=== PATIENT | female | born 1975 | race Caucasian/White ===

== ENCOUNTER → 2016-08-27 | Outpatient (CLI) | payer BC ==
[~2016-08-27] MED LIST: PRENTAB65 PO
[2016-08-27 16:09] LABS: URINE APPEARANCE CLEAR (CLEAR); URINE BILIRUBIN NEG (NEG); URINE COLOR YELLOW; URINE NITRITE NEG (NEG); UROBILINOGEN NEG (NEG)
[2016-08-27 16:12] LABS: MANUAL MICROSCOPIC REQUIRED? NO; REVIEW REQ? NO
== END | disposition home or self-care (01) ==
LOC: C.LABSPEC 15:37
PROVIDERS: ATTEND Obstetrics & Gynecology
DX: O09.519 Supervision of elderly primigravida, unspecified trimester (principal)

== ENCOUNTER → 2016-08-28 | Outpatient (CLI) | payer BC ==
[2016-09-03 03:24] LABS: CHLAMYDIA TRACH RNA*** NOT DETECTED (NOT DETECTED); GC (NEIS GONORRHOEAE)RNA** NOT DETECTED (NOT DETECTED)
== END | disposition home or self-care (01) ==
LOC: C.LABSPEC 18:08
PROVIDERS: ATTEND Obstetrics & Gynecology
DX: O09.519 Supervision of elderly primigravida, unspecified trimester (principal)

== ENCOUNTER → 2016-08-28 | Outpatient (CLI) | payer BC ==
[2016-08-28 16:46] LABS: BASO % 0.2 %; BASO ABS # 0.02 K/uL (0-0.2); COMPLETE YES; EOS % 1.3 %; HEMATOCRIT 33.5 % (37-47); IG% 0.2 %; LYMPH % 19.2 %; LYMPH ABS # 1.76 K/uL (1.2-3.4); MEAN CELL VOLUME 91.3 fL (80-100); MEAN CORPUSCULAR HEMOGLOBIN 32.7 pg (25-34); MEAN CORPUSCULAR HGB CONC 35.8 g/dl (32-36); MEAN PLATELET VOLUME 9.9 fL (7.4-10.4); MONO % 8.4 %; NEUT % 70.7 %; PLATELET COUNT 253 K/uL (130-400); RED BLOOD COUNT 3.67 M/uL (4.2-5.4); WHITE BLOOD COUNT 9.19 K/uL (4.8-10.8)
== END | disposition home or self-care (01) ==
LOC: C.LAB1850 15:21
PROVIDERS: ATTEND Obstetrics & Gynecology
DX: O09.519 Supervision of elderly primigravida, unspecified trimester (principal)

== ENCOUNTER → 2016-08-28 | Outpatient (CLI) | payer BC | END | disposition home or self-care (01) | LOC: C.PAPS 10:39 | PROVIDERS: ATTEND Obstetrics & Gynecology | DX: O09.512 Supervision of elderly primigravida, second trimester (principal); Z87.42 Personal history of other diseases of the female genital tract ==

== ENCOUNTER → 2016-09-18 | Outpatient (CLI) | payer BC ==
[2016-09-18 12:30] LABS: GTGD 50 Grams
[2016-09-19 15:17] LABS: AFP CONCENTRATION 21.8 NG/ML; AFP MULTIPLE OF MEDIAN 0.72; AFPTS GESTATIONAL AGE 16.7 WEEKS; AFPTS INSULIN DEP DIABETIC? NO; AFPTS MATERNAL WT 192 LBS; ALPHA-FETOPROTEIN RACE CAUCASIAN=W; HISTORY OF NTD NO; REPEAT SAMPLE? NO
== END | disposition home or self-care (01) ==
LOC: C.LAB1850 09:43
PROVIDERS: ATTEND Obstetrics & Gynecology
DX: O09.512 Supervision of elderly primigravida, second trimester (principal)

== ENCOUNTER → 2016-12-11 | Outpatient (CLI) | payer BC ==
[2016-12-11 14:37] LABS: HEMATOCRIT 31.1 % (37-47)
[2016-12-11 15:20] LABS: GTGD 50 Grams
== END | disposition home or self-care (01) ==
LOC: C.LAB1850 13:35
PROVIDERS: ATTEND Obstetrics & Gynecology
DX: O09.513 Supervision of elderly primigravida, third trimester (principal)

== ENCOUNTER → 2016-12-11 | Outpatient (CLI) | payer BC ==
[2016-12-11 16:41] LABS: URINE APPEARANCE CLEAR (CLEAR); URINE BILIRUBIN NEG (NEG); URINE COLOR YELLOW; URINE EPITHELIAL CELL AUTO >30 /lpf (0-5); URINE NITRITE NEG (NEG); URINE PH 6.5 (4.5-7.5); URINE SPECIFIC GRAVITY 1.015 (1.000-1.030); UROBILINOGEN NEG (NEG)
[2016-12-11 16:44] LABS: MANUAL MICROSCOPIC REQUIRED? NO; REVIEW REQ? NO
== END | disposition home or self-care (01) ==
LOC: C.LABSPEC 15:56
PROVIDERS: ATTEND Obstetrics & Gynecology
DX: O09.513 Supervision of elderly primigravida, third trimester (principal)

== ENCOUNTER → 2016-12-24 | Outpatient (CLI) | payer BC | END | disposition home or self-care (01) | LOC: C.LAB1850 07:09 | PROVIDERS: ATTEND Obstetrics & Gynecology | DX: O28.1 Abnormal biochemical finding on antenatal screening of mother (principal) ==

== ENCOUNTER → 2017-02-05 | Outpatient (CLI) | payer BC | END | disposition home or self-care (01) | LOC: C.LABSPEC 11:11 | PROVIDERS: ATTEND Obstetrics & Gynecology | DX: O09.513 Supervision of elderly primigravida, third trimester (principal); Z3A.00 Weeks of gestation of pregnancy not specified ==

== ENCOUNTER 2017-03-07 00:25 | Inpatient (IN) | payer BC ==
[~2017-03-07] VITALS: Ht 167.6 cm; Wt 91.6 kg
[2017-03-07] MEDS ORDERED: PRENTAB65 PO (01:53)
[2017-03-07 01:54] VITALS: Ht 167.6 cm; Wt 91.6 kg
[2017-03-07] MEDS ORDERED: LACTATED RINGER'S 1000ML 1,000 ML IV PRN (02:41)
[2017-03-07 03:06] LABS: HEMATOCRIT 30.7 % (37-47); MEAN CELL VOLUME 90.6 fL (80-100); MEAN CORPUSCULAR HEMOGLOBIN 30.7 pg (25-34); MEAN CORPUSCULAR HGB CONC 33.9 g/dl (32-36); MEAN PLATELET VOLUME 9.5 fL (7.4-10.4); PLATELET COUNT 224 K/uL (130-400); RED BLOOD COUNT 3.39 M/uL (4.2-5.4); WHITE BLOOD COUNT 14.75 K/uL (4.8-10.8)
[2017-03-07] MEDS ORDERED: FENTANYL 2MCG/ML ROPIV 1.25MG/ML 100ML BAG EPI ONE (03:07)
[2017-03-07] MEDS ORDERED: BUPIVACAINE 0.25% 30 ML VIAL ONE (03:07)
[2017-03-07] MEDS ORDERED: EpHEDrine SULFATE INJ 50 MG/ML AMP ONE (03:07)
[2017-03-07] MEDS ORDERED: FENTANYL CITRATE INJ 50 MCG/1 ML 2 ML VIAL ONE (03:08)
[2017-03-07] MEDS ORDERED: LACTATED RINGER'S 1000ML 500 ML IV PRN ×2 (03:56→10:02)
[2017-03-07] MEDS ORDERED: NALOXONE HCL INJ 1 MG in SODIUM CHLORIDE 0.9% 1000ML 1,000 ML IV PRN (03:56)
[2017-03-07] MEDS ORDERED: NALBUPHINE HCL INJ 10 MG/ML AMP IV PRN (04:00)
[2017-03-07] MEDS ORDERED: NALOXONE HCL INJ 0.4 MG/1 ML VIAL/CARP IV PRN (04:00)
[2017-03-07] MEDS ORDERED: EpHEDrine SULFATE INJ 50 MG/ML AMP IV PRN (04:00)
[2017-03-07] MEDS ORDERED: ONDANSETRON INJ 2 MG/ML 2 ML VIAL IV PRN (04:00)
[2017-03-07] MEDS ORDERED: DiphenhydrAMINE HCL 50 MG/ML VIAL IV PRN (04:00)
[2017-03-07] MEDS ORDERED: NURSING VERBAL MED ORDER ONE (05:00)
[2017-03-07] MEDS ORDERED: CALCIUM CARBONATE 500 MG CHEWABLE PO PRN (05:15)
[2017-03-07] MEDS: LACTATED RINGER'S 1000ML 1,000 ML IV SCH ×2 (05:34→12:49)
[2017-03-07] MEDS: FENTANYL 2MCG/ML ROPIV 1.25MG/ML 100ML BAG EPI PRN ×2 (06:55→13:05)
[2017-03-07] MEDS ORDERED: OXYTOCIN 30 UNITS/500ML NSS IV PRN ×2 (10:15→15:45)
[2017-03-07] MEDS ORDERED: SUPERCREAM 0.870 % 15GM JAR EXT PRN (15:45)
[2017-03-07] MEDS ORDERED: IBUPROFEN 600 MG TAB PO PRN (15:45)
[2017-03-07] MEDS ORDERED: ACETAMINOPHEN/CODEINE 300/30MG TAB PO PRN ×2 (15:45)
[2017-03-07] MEDS ORDERED: ACETAMINOPHEN 325 MG TAB PO PRN (15:45)
[2017-03-07] MEDS ORDERED: HYDROCORTISONE ACETATE 25 MG SUPP PR PRN (15:45)
[2017-03-07] MEDS ORDERED: OXYCODONE/ACETAMINOPHEN 5-325 TAB PO PRN (15:45)
[2017-03-07] MEDS ORDERED: LANOLIN OINT EXT PRN ×2 (15:45)
[2017-03-07] MEDS ORDERED: BENZOCAINE 20% AER SPR 82.5 GM CAN EXT PRN (15:45)
--- NOTE | 2017-03-07 16:03 | DELIVERY SUMMARY ---
DATE OF OPERATION: 03/07/2017 VAGINAL DELIVERY NOTE DATE OF DELIVERY: 03/07/2017 Juanis arrived in labor for Dr. Alvarado. At call sign-out she was progressing quickly. She became 9 cm and then fully and then pushed for a relatively short period of time, baby in right occiput anterior position. Clear fluid. There was nuchal cord that was passed over the head. Mouth and then nares suctioned with bulb. Baby delivered with gentle traction. No excessive force used. Live vigorous female infant. Cord clamped and cut. Cord gasses obtained. Cord blood obtained. Small first degree tear repaired with 3-0 Vicryl. Placenta removed without difficulty. IV Pitocin started. Estimated blood loss 300 mL. Sponge and instrument counts correct. I attest to the content of the Intraoperative Record and any orders documented therein. Any exception s are noted below.
--- NOTE | 2017-03-07 16:48 | Anesthesia Procedure Note ---
Anesthesia Epidural Removal Nt Date & Time Mar 07, 2017 at 16:48 Vital Signs Pain Intensity: 2.0 Notes Mental Status: alert / awake / arousable, participated in evaluation Nausea / Vomiting: adequately controlled Pain: adequately controlled Airway Patency, RR, SpO2: stable & adequate BP & HR: stable & adequate Hydration State: stable & adequate Neuraxial Anesthesia: was administered, sensory block is resolving Anesthetic Complications: no major complications apparent, pt satisfied with anesthetic care Epidural: removed without complications, with tip intact
[2017-03-07 18:30] VITALS: BP 120/69; PULSE 87; TEMP 36.9
[2017-03-07] MEDS: DOCUSATE SODIUM 100 MG CAP PO SCH (20:02)
[2017-03-07 23:15] VITALS: BP 109/68; PULSE 80; TEMP 36.7
[2017-03-08 03:45] VITALS: BP 126/84; PULSE 71; TEMP 36.5
[2017-03-08 08:00] LABS: HEMATOCRIT 26.9 % (37-47)
[2017-03-08] MEDS ORDERED: DIPHTHERIA/TETANUS/PERTUSSIS 0.5 ML SYR/VIAL IM. ONE (08:00)
[2017-03-08] MEDS: PRENATAL VITAMIN TAB PO SCH (08:05)
[2017-03-08] MEDS: DOCUSATE SODIUM 100 MG CAP PO SCH ×2 (08:05→19:18)
--- NOTE | 2017-03-08 08:21 | Progress Note ---
Subjective Mar 08, 2017. Subjective conversation w/ patient, physical exam, chart review, lab review Ambulation: ambulating normally Voiding: no voiding problems Passing Gas: Yes Diet Tolerance: Clear Liquids Lochia: Small Feeding Type: Bottle Feeding Objective Vital Signs Date Time Temp Pulse Resp B/P (MAP) Pulse Ox O2 Delivery O2 Flow Rate FiO2 03/08/17 03:45 36.5 71 16 126/84 (98) Room Air 03/07/17 23:15 Room Air 03/07/17 23:15 36.7 80 16 109/68 (82) Room Air 03/07/17 18:30 36.9 87 20 120/69 (86) Room Air 03/07/17 18:30 Room Air Physical Exam General Appearance: WELL-APPEARING Abdomen: non tender Fundus: Firm Extremities: no calf tenderness Laboratory Results Last 24 Hours Test 03/08/17 07:36 Hemoglobin 9.1 g/dL Hematocrit 26.9 % Assessment and Plan Post- Day#: 1 Continue Routine Care: WILLIAM
--- NOTE | 2017-03-08 08:34 | Discharge Instructions ---
Discharge Instructions Date of Service Mar 08, 2017. Admission Reason for Admission: Spontaneous Onset Of Labor Discharge Discharge Diagnosis / Problem: Discharge Goals Goal(s): Routine recovery after delivery Activity Recommendations Activity Limitations: per Instructions/Follow-up section . Instructions / Follow-Up Instructions / Follow-Up ACTIVITY RECOMMENDATIONS: * Gradual return to full activity over the next 2-3 weeks. * No lifting - nothing heavier than baby over the next 2-3 weeks. * Do not engage in vigorous exercise, sexual activity or sports until cleared by your physician. * Do not drive or operate any motorized equipment until cleared by your physician. * You may shower/bathe daily. MEDICATIONS: For discomfort or pain, you may use Acetaminophen (Tylenol), Ibuprofen (Advil), or Naproxen (Aleve) following the package directions. For constipation you may use Colace following the package directions. BREAST CARE: If you are not breast feeding: * Wear a supportive bra 24 hours a day for one to two weeks. * Avoid stimulating your breasts and nipples as much as possible during the first few weeks after delivery. * When taking a shower, have the warm water hit your back, not breasts. * When your breasts feel full, apply ice packs. Usually three to four times a day helps ease the discomfort. * Take a mild pain medication (Tylenol / Motrin) when you are uncomfortable. If breast feeding: * Use breast milk to lubricate nipples. Lansinoh cream may be used for sore nipples. You do not need to remove cream prior to breast feeding. If using a different brand of cream, check the label for directions regarding removal of cream prior to nursing. * Wear a supportive bra. * If having problems with breasts or breast feeding, call a microsoft dynamics consultant or your health care provider. EPISIOTOMY CARE: After delivery, if you have an episiotomy (stitches), the following steps will ease discomfort and aid healing. * For the first 24 hours after delivery, place ice packs next to your episiotomy to help reduce swelling. * After the first 24 hour-period, sitz baths, either portable or in the tub, are suggested. A shower with a shower arm sprayed over the episiotomy may be comforting. * Emerald care should be done after each voiding and bowel movement. Squirt warm water from a plastic bottle over the perineum (region of the body between the anus and urinary opening) and pat dry. * Use Dermoplast to ease discomfort. Shake container. Pillager directly over the episiotomy. Place a Tucks on a clean sanitary pad next to your episiotomy. SPECIAL CARE INSTRUCTIONS: When you are discharged from the hospital, it is important for you to follow the instructions listed below: * During the first week at home, you should be able to care for yourself and your baby. In addition, the usual light household activities are encouraged. * Limit your activities to the way you feel. Do not try to clean the house or move furniture. Be sensible. * If you actively engage in sports and have done so up until the time of your delivery, you may resume these activities as soon as you feel able. This may take up to one month or even longer. Use good judgment. * Continue to take your vitamins for at least six weeks after the of your baby. * Your diet need not be limited unless you were on a special diet before your delivery. Breast-feeding mothers need around 2500 calories per day and at least 64-80 ounces of fluid per day (8 to 10 glasses). * You should eat foods from the four major food groups. Crash diets or fad diets are to be avoided. Eating lean meats, fresh fruits and vegetables, low-fat dairy products, high fiber foods and a regular exercise program, will help you get back to your pre- weight without putting your health at risk. * Constipation is sometimes a problem after delivery. Take a mild laxative as needed. If breast feeding, Milk of Magnesia is acceptable to use. You may use a suppository or Fleets enema if no episiotomy. * A daily shower or tub bath is suggested. Be sure to thoroughly and gently dry the perineum. * A bloody vaginal discharge will usually continue until around four weeks post . A small amount of bleeding may continue for as long as six weeks. Vaginal discharge changes from the bright red bleeding after delivery to pink then brownish and finally yellowish-pink before becoming white and disappearing. * Bleeding may increase with activity. Your first period may come in 4-8 weeks. If you are breast feeding, your period may be delayed even longer. * Mertens (sex) can begin whenever both you and your partner feel comfortable and do not have any form of genital infection. It is recommended that you wait at least six weeks for internal and external healing to occur. If you have questions, please talk to your health care practitioner. A condom should be used to prevent infection and . * Foreplay, gentle intercourse and lubrication is very important the first several times to prevent pain. A water-based lubricant such as K-Y jelly or Astroglide may be used. * If you have RH negative blood and your baby is RH positive, you will receive RHOGAM by injection prior to discharge. The nurse will give you a card to keep with you that has the date and place that you received RHOGAM after delivery. * During your care, you had a Rubella screen done to check for the presence of rubella antibodies in your blood. If your test was negative, you will receive a Rubella vaccine prior to discharge. This vaccine may cause a fever, soreness at the injection site and flu-like symptoms. If these symptoms persist, notify your health care practitioner. is not advised for one month after a Rubella vaccine. * Verbalizes understanding of car seat law as reviewed with patient nursing. * Car Seat hand-out given and reviewed with patient by nursing. * Shaken baby information reviewed with patient by nursing. Call you doctor if: * Heavy bleeding (saturating several pads an hour) or passing clots the size of your fist. * A fever >101 degrees F (38.3 degrees C) on two occasions four hours apart and /or chills. * Unusual pain in the pelvic or vaginal areas. * "Baby Blues" lasting longer than two weeks. If you have any questions or concerns, call your health care practitioner at . FOLLOW UP VISIT: * Please call the office at to schedule a 6 week examination. It is important you keep this appointment. It is important for you to make arrangements for either yearly or twice yearly check-ups thereafter. Current Hospital Diet Patient's current hospital diet: Regular OB Diet Discharge Diet Recommended Diet: Regular OB Diet Pending Studies Studies pending at discharge: no Medical Emergencies . Who to Call and When: Medical Emergencies: If at any time you feel your situation is an emergency, please call 911 immediately. . Non-Emergent Contact Non-Emergency issues call your: [employer] . . "Provider Documentation" section prepared by Benjamin Jon. . VTE Core Measure Inpt VTE Proph given/why not?: Treatment not indicated
[2017-03-08 08:45] VITALS: BP 117/75; PULSE 68; TEMP 36.5
[2017-03-08 12:55] VITALS: BP 112/72; PULSE 79; TEMP 36.7
[2017-03-08 15:10] VITALS: BP 121/75; PULSE 83; TEMP 36.7
[2017-03-08] MEDS ORDERED: BISACODYL 5 MG TABEC PO SCH (20:00)
[2017-03-08 23:30] VITALS: BP 124/83; PULSE 80; TEMP 36.4; O2SAT 96
--- NOTE | 2017-03-09 06:11 | OB/GYN Progress Note ---
BOOKKEEPER Progress Note Date of Service Mar 09, 2017. Subjective conversation w/ patient, physical exam, chart review, lab review Ambulation: ambulating normally Voiding: no voiding problems Diet Tolerance: Regular Diet Lochia: Moderate Feeding Type: Breast Feeding Pain: 0.5/10 pain Review of Systems Constitutional: No fever Respiratory: No shortness of breath Cardiac: No chest pain Abdomen: No nausea, No vomiting Female : No dysuria Objective Vital Signs Date Time Temp Pulse Resp B/P (MAP) Pulse Ox O2 Delivery O2 Flow Rate FiO2 03/08/17 23:30 96 Room Air 03/08/17 23:30 36.4 80 16 124/83 (97) 96 Room Air 03/08/17 15:10 Room Air 03/08/17 15:10 36.7 83 18 121/75 (90) Room Air 03/08/17 12:55 36.7 79 20 112/72 (85) 03/08/17 08:45 36.5 68 16 117/75 (89) Physical Exam General Appearance: WELL-APPEARING Respiratory/Chest: lungs clear, normal breath sounds, no respiratory distress Cardiovascular: regular rate, rhythm Abdomen: normal bowel sounds, non tender, soft Fundus: Firm, Relation to Umbilicus (1 finger breaths below) Extremities: non-tender, no pedal edema Laboratory Results Last 24 Hours Test 03/08/17 07:36 03/09/17 04:44 Hemoglobin 9.1 g/dL Hematocrit 26.9 % Medications Current Inpatient Medications Medications (Trade) Dose Ordered Sig/Jose Route Start Time Stop Time Status Last Admin Dose Admin Calcium Carbonate (Tums Chew Tab) 1,000 mg DAILY PRN PO 03/07/17 05:15 04/06/17 05:14 03/07/17 05:29 1,000 MG Lactated Ringer's 500 ml @ 999 mls/hr Q31M PRN IV 03/07/17 10:02 04/06/17 10:01 Oxytocin (Pitocin IV) 30 units UD PRN IV 03/07/17 15:45 04/06/17 15:44 Benzocaine (Dermoplast Aero Spr) 1 appln PRN PRN EXT 03/07/17 15:45 04/06/17 15:44 03/07/17 21:56 1 APPLN Cocaine HCl (Supercream 0.870% Cr) BID PRN EXT 8/5/17 15:45 03/21/17 15:44 Hydrocortisone Acetate (Anusol Hc Supp) 25 mg BID PRN TN 03/07/17 15:45 04/06/17 15:44 Lanolin (Lanolin Oint) PRN PRN EXT 03/07/17 15:45 04/06/17 15:44 Prenat Multivit/ Automation And Controls Supervisor/Iron/Folic Ac ( Vitamin Tab) 1 tab DAILY PO 03/08/17 08:00 04/07/17 07:59 03/08/17 08:05 1 TAB Ibuprofen (Motrin Tab) 600 mg Q4H PRN PO 03/07/17 15:45 04/06/17 15:44 03/08/17 08:05 600 MG Acetaminophen (Tylenol Tab) 650 mg Q6H PRN PO 03/07/17 15:45 04/06/17 15:44 Acetaminophen/ Codeine Phosphate (Tylenol w/ Codeine #3 Tab) 1 tab Q4H PRN PO 03/07/17 15:45 04/06/17 15:44 Acetaminophen/ Codeine Phosphate (Tylenol w/ Codeine #3 Tab) 2 tab Q4H PRN PO 03/07/17 15:45 04/06/17 15:44 Bisacodyl (Dulcolax Supp) 10 mg DAILY PRN TN 03/09/17 07:00 Docusate Sodium (coLACE CAP) 100 mg BID PO 03/07/17 20:00 04/06/17 19:59 03/08/17 19:18 100 MG Assessment and Plan Post- Day Number: 2 Continue Routine Care: A/P: This is a 41 y/o female, , PPD # 2 s/p normal vaginal delivery. She is ambulating and clinically stable to discharge. - Vital signs are reviewed and WNL (Tmax 36.7 ) - Last Hgb 9.1 (03/08). This AM pending - Blood type A+, GBS neg, Rubella Immune - No signs of depression. - Routine care - Discussed resting, feeding, pain control, mastitis, control, follow up in 6 weeks and reasons to call sooner, if necessary. - Continue with pain medication as needed, and continue vitamins. - Encourage breast feeding and educate about breast feeding - Patient understands and keen for home. - Plan to discharge home Resident Physician Supervision Note: I interviewed and examined the patient. Discussed with Dr. Owens and agree with findings and plan as documented in the note. Any exceptions or clarifications are listed here: [None] Documented By: Benjamin Jon Resident Involvement: Resident Care Provided Care Provided: OB Delivery
[2017-03-09] MEDS ORDERED: BISACODYL 10 MG SUPP PR PRN (07:00)
[2017-03-09 07:20] LABS: HEMATOCRIT 25.4 % (37-47); MEAN CELL VOLUME 92.4 fL (80-100); MEAN CORPUSCULAR HGB CONC 34.6 g/dl (32-36); MEAN PLATELET VOLUME 9.7 fL (7.4-10.4); PLATELET COUNT 211 K/uL (130-400); RED BLOOD COUNT 2.75 M/uL (4.2-5.4); WHITE BLOOD COUNT 11.61 K/uL (4.8-10.8)
[2017-03-09 08:10] VITALS: O2SAT 96
[2017-03-09] MEDS: DOCUSATE SODIUM 100 MG CAP PO SCH (08:34)
[2017-03-09] MEDS: PRENATAL VITAMIN TAB PO SCH (08:34)
[2017-03-09 09:45] VITALS: BP 130/81; PULSE 82; TEMP 36.7; O2SAT 96
[2017-03-09 11:57] VITALS: BP_DIAS 81; PULSE 82; TEMP 36.7
[2017-03-10] MEDS ORDERED: FERROUS SULFATE 325 MG TAB PO SCH (08:00)
== END 2017-03-09 11:57 | disposition home or self-care (01) | DRG 775 ==
LOC: C.OPB 00:25 → C.LD 00:27 → C.OPB 02:43 → C.OBG 18:43
PROVIDERS: ADMIT Obstetrics & Gynecology; ATTEND Obstetrics & Gynecology
PROC: 0HQ9XZZ Repair Perineum Skin, External Approach (ICD-10-PCS; principal; 2017-03-07)
PROC: 10E0XZZ Delivery of Products of Conception, External Approach (ICD-10-PCS; principal; 2017-03-07)
DX: O48.0 Post-term pregnancy (principal); O99.214 Obesity complicating childbirth; O26.893 Other specified pregnancy related conditions, third trimester; O70.0 First degree perineal laceration during delivery; E66.9 Obesity, unspecified; Z68.32 Body mass index [BMI] 32.0-32.9, adult; O69.81X0 Labor and delivery complicated by cord around neck, without compression, not applicable or unspecified; O99.02 Anemia complicating childbirth; D64.9 Anemia, unspecified; Z87.59 Personal history of other complications of pregnancy, childbirth and the puerperium